=== PATIENT | male | born 1970 | race African-American/Black ===

== ENCOUNTER 2021-08-15 19:43 | Emergency (ER) | payer BC, SELFPAY ==
--- NOTE | ~2021-08-15 | XR_ITS ---
EXAM: XR foot LT min 3V HISTORY: LT FOOT METATARSALS PAIN AND SWELLING COMPARISON: None available FINDINGS: Normal mineralization. No fracture or dislocation. No lytic or blastic lesion. Scattered d egenerative changes in the midfoot. Plantar and calcaneal enthesopathy. No erosion or periosteal bean ge. Soft tissues within normal limits. IMPRESSION: No acute osseous finding in the left foot. Reviewed, dictated and finalized at location K.
[2021-08-15 19:49] VITALS: BP 166/90; PULSE 122; RESP 18; TEMP 36.9; O2SAT 99
[2021-08-15 22:20] VITALS: PULSE 121; RESP 20; O2SAT 99
[2021-08-15 22:46] LABS: Basophils Absolute Auto 0.1 K/mm3 (0.0-0.1); Basophils Percent Auto 0.5 % (0.2-1.2); Eosinophils Absolute Auto 0.1 K/mm3 (0-0.3); Eosinophils Percent Auto 0.8 % (0-4.4); Hematocrit 47.2 % (42.0-52.0); Hemoglobin 15.9 g/dL (14.0-18.0); Immature Granulocyte Absolute 0.11 K/mm3 (0.00-0.031); Lymphocytes Absolute Auto 2.34 K/mm3 (0.9-3.2); Lymphocytes Percent Auto 21.8 % (18.3-44.2); Mean Corpuscular HGB Conc 33.7 g/dl (32-36); Mean Corpuscular Hemoglobin 28.6 pg (26-34); Mean Corpuscular Volume 84.9 fl (80-100); Mean Platelet Volume 9.9 fl (7.4-10.4); Monocytes Absolute Auto 0.7 K/mm3 (0.1-0.6); Monocytes Percent Auto 6.4 % (2.6-8.5); Neutrophils Absolute Auto 7.4 K/mm3 (1.3-6.7); Neutrophils Percent Auto 69.5 % (45.5-73.1); Platelet Count Result 216 k/mm3 (150-375); Red Blood Count 5.56 M/mm3 (4.6-6.20); Red Cell Distribution Width 12.9 % (11.5-14.5); White Blood Count 10.7 K/mm3 (4.5-10.0)
[2021-08-15 22:49] LABS: Alanine Aminotransferase 45 U/L (4-50); Albumin Level 4.6 g/dL (3.5-5.1); Alkaline Phosphatase 157 U/L (38-126); Anion Gap 10 mmol/L (8-16); Aspartate Amino Transferase 38 U/L (17-59); Bilirubin,Total 0.6 mg/dL (0.2-1.3); Blood Urea Nitrogen 21 mg/dL (9-20); Calcium 9.2 mg/dL (8.4-10.2); Carbon Dioxide 22 mmol/L (22-30); Chloride 99 mmol/L (98-107); Estimated CRCL calculation 140 ml/min; Estimated Glomerular Filt Rate > 60; Glucose 303 mg/dL (65-110); Potassium 4.3 mmol/L (3.4-5.0); Sodium 131 mmol/L (137-145)
--- NOTE | 2021-08-15 23:35 | ED.LOWEXIN ---
HPI - Extremity Injury (Lower) General Chief Complaint: Extremity Injury, Lower Stated Complaint: Left foot pain, sent from Time Seen by Provider: 08/15/21 22:25 History of Present Illness HPI Narrative: Patient is a 51-year-old male who presents ER with left foot pain. Reports its been going on intermittently over the last couple weeks. Had some swelling today which is also been intermittent. Reports has been working long hours on his feet. He wears work boots. No swelling to the leg or calf. No chest pain or shortness of breath. No fevers or chills or sweats. No redness noted. Denies actual trauma. Reports has history of injury to the left fifth metatarsal in the past. Reports that urgent care was concerned he may have osteomyelitis due to what they were seeing on an x-ray. Patient is diabetic. He has no lesions on his foot. Review of Systems Review of Systems: All systems reviewed & are unremarkable except as noted in HPI and below Constitutional: Constitutional: Denies chills, Denies fever(s) and Denies weakness Musculoskeletal: Musculoskeletal: Denies arthralgias and Denies joint swelling Comments: Left foot pain Integumentary/Breasts: Skin/Breast: Denies pruritus, Denies rash and Denies skin ulcer Neurologic: Denies headache(s), Denies focal weakness and Denies numbness PMFSH Past Medical History Medical History (Updated 08/15/21 @ 23:40 by Harish Nettles MD) Diabetes Surgical History Surgical History (Updated 08/15/21 @ 23:37 by Harish Nettles MD) No pertinent past surgical history Social History Social History (Updated 08/15/21 @ 23:37 by Harish Nettles MD) Smoking status: Never smoker Exam Narrative: GENERAL: Well-appearing, morbidly obese, and in no acute distress. HEAD: Normocephalic, atraumatic. CHEST: Clear to auscultation. No respiratory distress. HEART: Regular rate and rhythm. Normal peripheral pulses. EXTREMITIES: Normal range of motion. No edema. Mild tenderness over the base of fifth metatarsal as well as over the first metatarsal dorsally of the left foot with no significant swelling compared to the right foot. No erythema. Normal dorsalis pedis and posterior tibial pulses. SKIN: Warm, dry, no rash. NEURO: Alert and oriented x3. PSYCH: Normal mood and affect. Course Course Emergency Course: Patient likely having reactive pain due to long hours. Recommend scheduled anti-inflammatories. 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 Vital Signs Vital signs: Vital Signs Temperature 98.5 F 08/15/21 19:49 Pulse Rate 122 H 08/15/21 19:49 Respiratory Rate 18 08/15/21 19:49 Blood Pressure 166/90 H 08/15/21 19:49 Pulse Oximetry 99 08/15/21 19:49 Temperature 98.5 F 08/15/21 19:49 Pulse Rate 121 H 08/15/21 22:20 Respiratory Rate 20 08/15/21 22:20 Blood Pressure 166/90 H 08/15/21 19:49 Pulse Oximetry 99 08/15/21 22:20 MDM - Extremity Injury (Lower) Lab Data Result diagrams: 08/15/21 22:24 08/15/21 22:24 Labs: Lab Results 08/15/21 08/15/21 Range/Units 22:24 22:24 WBC 10.7 H (4.5-10.0) K/mm3 RBC 5.56 (4.6-6.20) M/mm3 Hgb 15.9 (14.0-18.0) g/dL Hct 47.2 (42.0-52.0) % MCV 84.9 (80-100) fl MCH 28.6 (26-34) pg MCHC 33.7 (32-36) g/dl RDW 12.9 (11.5-14.5) % Plt Count 216 (150-375) k/mm3 MPV 9.9 (7.4-10.4) fl Immature Gran % (Auto) 1.0 H (0-0.5) % Neut % (Auto) 69.5 (45.5-73.1) % Lymph % (Auto) 21.8 (18.3-44.2) % [place] % (Auto) 6.4 (2.6-8.5) % Eos % (Auto) 0.8 (0-4.4) % Baso % (Auto) 0.5 (0.2-1.2) % Lymph # (Auto) 2.34 (0.9-3.2) K/mm3 [place] # (Auto) 0.7 H (0.1-0.6) K/mm3 Eos # (Auto) 0.1 (0-0.3) K/mm3 Baso # (Auto) 0.1 (0.0-0.1) K/mm3 Abs Immat Gran (auto) 0.11 H (0.00-0.031) K/mm3 Absolute Neuts (auto) 7.4 H (1.3-6.7) K/mm3 Absolute Nucleated RBC 0.0 (0.0-0.0
[2021-08-15 23:52] VITALS: BP 155/90; PULSE 113; RESP 20; O2SAT 97
== END 2021-08-15 23:53 | disposition home or self-care (01) ==
PROVIDERS: Nurse Practitioner Family; Emergency Provider Emergency Medicine
DX: M79.672 Pain in left foot (principal); E11.9 Type 2 diabetes mellitus without complications
CPT/HCPCS: 36415; 73630; 80053; 85025; 99283